=== PATIENT | female | born 1965 | race Asian ===

== ENCOUNTER 2016-12-03 08:44 | Day surgery (SDC) | payer MEDICARE, MEDICAID ==
[2016-12-03] VITALS (10 sets, daily range): BP systolic 99–130; BP diastolic 57–78; PULSE 61–83; RESP 12–21; O2SAT 96–100
[~2016-12-03] VITALS: Ht 157.5 cm; Wt 69.5 kg
--- NOTE | 2016-12-03 08:37 | PCM.HPANE ---
Patient Data Surgeon Admitting Provider: Attending Provider:Jose Valadez MD Primary Care Physician:Leah Carl Other Provider:Higinio Calix Anesthesia Reason for Visit Postmenpausal Bleeding Ht/WT & BMI Height (Feet): 5 Height (Inches): 2 Weight (Kilograms): 68.94 Body Mass Index 27.00 Allergies Coded Allergies: aspirin (Verified Allergy, Intermediate, vomiting, 09/08/12) atenolol (Verified Allergy, Unknown, 09/17/11) frovatriptan succinate (Verified Allergy, Unknown, 09/08/12) Past Anesthesia History Anesthesia History: Denies:: Abnormal Airway, Anesthesia Reactions, Difficult Intubation, Malignant Hyperthermia Diabetes History Hx Diabetes?: No (pt states pre-diabetic) MRSA MRSA: No Medications Hypertension Medication: No Home Meds Incl Beta Kaye: No Reported Medications Naproxen 500 Mg [id number] Mg PO BID PRN For Pain Ref 0 11/28/16 Docusate Sodium (Colace)100 Mg [id number] Mg PO BID PRN For Constipation Ref 0 11/28/16 Naratriptan 2.5 Mg Tablet2.5 Mg PO Q4H PRN migraine MR x1/24hrs 11/28/16 Lorazepam 0.5 Mg Tablet0.5 Mg PO TID PRN For Anxiety Ref 0 11/28/16 Hydrocodone-Acetaminophen 5-325 mg 1 Each Tablet1 Tablet PO Q4H PRN For Pain Ref 0 11/28/16 Fluticasone Propionate (Fluticasone Propionate Nasal)16 Gm [place].susp2 [place] NS BID #16 GM Ref 0 11/28/16 Discontinued Reported Medications Hydrocod/APAP-Expunged, Do Not Renew! (VICODIN 5/325-Expunged Drug, Do Not Renew )1 Each Tablet1 Tab PO PRN 09/05/12 Lorazepam-Expunged Drug, Do Not Renew! 0.5 Mg Tablet0.5 Mg PO BID 09/05/12 Simvastatin-Expunged Drug, Choose New Med! 10 Mg [id number] Mg PO DAILY #30 TAB 09/05/12 History History of ENT Problems?: Yes HEENT History: Positive for:: TMJ (grinds, no longer wears nightguard) Denies:: Abnormal Airway Cataracts Difficult Intubation Dysphagia Glaucoma Hearing Problem Sinus Problem Hx of Heart Problems?: Yes Cardiovascular History: Positive for:: Abdominal Aortic Aneurism (4.[address] 04/2016, followed by Leah Carl, follow CT) Hypertension Denies:: Atrial Fibrillation Chest Pain Congestive Heart Failure Coronary Artery Disease Heart Murmur Irregular Heartbeat Pacemaker Hx of Respiratory Problem?: Yes Respiratory History: Positive for:: Pneumonia (as child with surgery) Denies:: Asthma COPD Emphysema Hemoptysis Oxygen Administration Pulmonary Embolism Tuberculosis Use of C-PAP Machine Use of Inhalers / NEBS Hx Neurologic Problems?: Yes Neurological History: Positive for:: Dizziness Headaches (chronic) Denies:: CVA Multiple Sclerosis Parkinson's Disease Seizures Hx of GI Problems?: Yes Gastrointestinal History: Positive for:: Gastroesphageal Reflux Heartburn Hiatal Hernia (umbilical) Denies:: Cirrhosis Gall Bladder Disease Hepatitis Hx of Problems?: Yes Genitourinary History: Positive for:: Kidney Stones (passed spontaneously) Denies:: Urinary Tract Infection HX of Peritoneal Dialysis: No Female Hx: Denies:: Currently Problems with Breasts? Skin History: Denies:: History Skin Disorders? Pressure Ulcers Hx Musculoskeletal Problems?: Yes Musculoskeletal History: Positive for:: Back Injury (chronic back pain) Osteoarthritis Denies:: Fibromyalgia Joint Replacement Musculoskeletal Trauma Systemic Lupus Hx of Psycho/Social Problems?: Yes Psycho Social History: Positive for:: Anxiety Hx Depression Denies:: Bipolar Disorder Hx Surgeries?: Yes (ablation, rectal surgery, D+C, hysteroscopy) Hx Any Other Health Problems?: Yes Other History: Positive for:: Hospitalization Denies:: Cancer Endocrine Disease Thyroid Disease History Blood Transfusions: Positive for:: Accept Blood Products? Blood Transfusions (in [place] when child) Denies:: Blood Transfuse Reaction Hx Diabetes: No (pt states pre-diabetic) Hx Alcohol Use: YesAlcoholic Drinks Per Day: yearly on holidaysHx Substance Use: No Smoking Status: Never Smoker Have You Smoked inLast 12 mo: No Stop/Bang S-Snoring: Do You Snore Loudly: No T-Tired: feel tired, fatigued: No O-Obsered: Observed not breath: No P-Blood Pressure: treated: No B- Body Mass Index > 35 kg/m2: No A- Age over 50: Yes N- Neck Large Circumference: No G- Gender Male: No JESSIE Total Score: 1 JESSIE Risk Assessment: Low Risk, <3 Yes Risk Assessment Category Category 1A: Patient has history of documented sleep apnea, and HAS NOT received any narcotic, sedative or anesthesia administration during this stay. Category 1B: Patient has history of documented sleep apnea, and HAS received any narcotic , sedative or anesthesia administration during this stay Category 2: Patient has SUSPECTED Obstructive Sleep Apnea, and HAS received any narcotic , sedative or anesthesia administration during this stay. Category 3: Patient has SUSPECTED Obstructive Sleep Apnea and HAS NOT received narcotic, sedative or anesthesia administration during this stay. Category 4: Outpatient in Procedural Areas with known sleep apnea or who screen positive for High Risk via the STOP/BANG questionnaire. Exam Exam General Appearance: Alert, Oriented X3, Cooperative, No Acute Distress HEENT/AIRWAY: MP 2 Lungs: Clear to Auscultation, Normal Air Movement Heart: Exam Unremarkable, Regular Rate/Rhythm, No Murmurs/Rubs/Gallops Plan Impression Patient chart reviewed, patient interviewed and anesthestic plan with risks, benefits, and alternatives discussed, and informed consent obtained. ASA Physical Status: ASA1 Normal Healthy Anesthetic Plan: GA Bene/Risks/Altern/Consents: Yes HP Complete Prior to Induction: Yes Bryan Weaver MD Dec 03, 2016 08:37
[~2016-12-03 08:44] MED LIST: DOCU-41 PO; FLUT16SP NS; HYDR-4003 PO; LORA0.5T PO; NARA2.5T2 PO; NPR500T PO
[2016-12-03] MEDS ORDERED: Propofol 10,000 mCg/mL 20 mL Inj ONE (08:45)
[2016-12-03] MEDS ORDERED: fentaNYL-PF 50 mCg/mL 2 mL Inj ONE (08:45)
[2016-12-03] MEDS ORDERED: Ondansetron 2 mg/mL 2 mL Inj ONE (08:45)
[2016-12-03] MEDS ORDERED: Dexamethasone 4 mg/mL Inj ONE (08:45)
[2016-12-03] MEDS: Lactated Ringer's 1,000 ML IV SCH ×2 (09:24→11:13)
[2016-12-03 11:01] LABS: Mean Corpuscular Hemoglobin 30.1 pg (27.0-35.0)
[2016-12-03] MEDS ORDERED: Lactated Ringer's 500 ML IV PRN (11:36)
[2016-12-03] MEDS ORDERED: Lactated Ringer's 1,000 ML IV SCH (11:36)
[2016-12-03] MEDS ORDERED: Phenylephrine 10,000 mCg/mL Inj IVPUSH PRN (11:40)
[2016-12-03] MEDS ORDERED: fentaNYL-PF 50 mCg/mL 2 mL Inj IVPUSH PRN (11:40)
[2016-12-03] MEDS ORDERED: EPHEDrine Sulfate 50 mg/mL Inj IVPUSH PRN (11:40)
[2016-12-03] MEDS ORDERED: hydrALAZINE 20 mg/mL Inj IVPUSH PRN (11:40)
[2016-12-03] MEDS ORDERED: Atropine 0.4 mg/mL Inj IVPUSH PRN (11:40)
[2016-12-03] MEDS ORDERED: MetoCLOpramide 5 mg/mL 2 mL Inj IVPUSH PRN (11:40)
[2016-12-03] MEDS ORDERED: Ondansetron 2 mg/mL 2 mL Inj IVPUSH PRN ×2 (11:40→12:40)
[2016-12-03] MEDS ORDERED: Dexamethasone 4 mg/mL Inj IVPUSH PRN (11:40)
[2016-12-03] MEDS ORDERED: HYDROmorphone 1 mg/mL Inj IVPUSH PRN (11:40)
--- NOTE | 2016-12-03 12:14 | PCM.ANEP1 ---
Post Anesthesia Phase 1 PACU Phase 1 Assessment Vital Signs Vital Signs Date Time Temp Pulse Resp B/P Pulse Ox O2 Delivery O2 Flow Rate FiO2 12/03/16 12:05 78 16 120/62 100 Simple Mask 9 12/03/16 12:03 36.7 83 13 99/78 100 Simple Mask 9 12/03/16 09:17 36.8 66 18 130/64 96 Room Air Anesthetic Administered: GA Level of Alertness: Sleepy, easy to arouse GHOTRA's with Equal Strength: Yes Pain: No Nausea or Vomiting: No Oxygen Delivery: Simple Mask Lungs: Clear to Auscultation, Normal Air Movement Bryan Weaver MD Dec 03, 2016 12:14
[2016-12-03] MEDS ORDERED: HYDROcodone-APAP 5-325 mg Tablet PO PRN (12:40)
--- NOTE | 2016-12-03 12:44 | PCM.DIGYN ---
Surgical Discharge Instruction Dates of Hospitalization Date of Hospital Admission 12/03/2016 Providers Admitting Physician: Primary Care Physician: Leah Carl Attending Physician: Jose Valadez MD Diagnosis at Time of Discharge Problems: (1) Postmenopausal bleeding Status: Acute ICD Code: N95.0 Diet Discharge Diet: No restrictions Activity Discharge Activity-General: Be up and about, No driving while taking narcotic, Other (Pelvic rest (no tampons or intercourse) for 2 weeks) Dressing and Incisional Care Hygiene: May shower, NO bathtub, hot tub or whirlpool Additional Instructions Discharge Instructions You had a hysteroscopy with D&C. You should anticipate light bleeding and cramping at home. Follow Up Plan Follow-up Provider (F9): Jose Valadez MD Follow-up appointment: Weeks (2) Call your provider for: Fever (of 100.4 or higher), Chills, Shortness of breath , Vomitting, Heavy vaginal bleeding, Increasing pain Jose Valadez MD Dec 03, 2016 12:43
--- NOTE | 2016-12-03 13:41 | PCM.SURGOP ---
Surgical Operative Report Date of Service: Dec 03, 2016 Pre Operative Diagnosis 1. Postmenopausal bleeding Post Operative Diagnosis Same Procedure: 1. Diagnostic hysteroscopy 2. Dilation and curettage Surgeon and Naval Engineer: Surgeon: Jose Valadez MD Assistants: None Indication for Procedure Page is a 51 y/o G0 who presents for hysteroscopy with D&C for postmenopausal bleeding. I saw her for a pap 06/2015 and it was normal. Her ultrasound on 07/29/2016 shows fibroids and an irregular endometrium 6.3mm in thickness. She had an ovarian cyst that resolved over 1 month. She describes her pain as cramping and constant, spreading to her back and worse with bleeding. She continues to report bleeding. Her surgery was postponed in late October d/t a multitude of neurological or cardiovascular complaints now fully evaluated and evaluation benign. Risks benefits and alternatives of the procedure were reviewed in October with patient and again on 12/02/2016 in the office and verbal and written consent obtain. Please see her H&Ps for details. Findings: Small, anterverted uterus, mobile. No masses with bimanual exam. Cervical stenosis noted. Uterus sounds to 8cm. With hysteroscopy, the right cornua is irregular, and was likely dilated with cervical dilation - but no irregular lesions noted intrauterine and no perforation. No endocervical lesions noted either. Procedure Details The patient was taken to the operating room where she was placed under general anesthesia without difficulty. She was then positioned in dorsal lithotomy with Yellofin stirrups. An exam under anesthesia was performed that revealed a small , mobile and anteverted uterus. She was then prepped and draped in the normal sterile fashion. A straight cath was performed to empty her bladder. A time out was performed prior to the start of the procedure. A speculum was then placed in the patient's vaginal and a tenaculum on the anterior lip of the cervix. Uterine attempted to be sounded, but cervical stenosis did not permit sound. The cervix was then dilated to accommodate the hysteroscope. The uterus was then sounded to 8 cm (with long cervical length). The hysteroscopy was performed using normal saline medium. The uterine cavity was inspected and it appeared that with sounding, the right cornua was dilated, but no perforation seen and no other defects. No intrauterine abnormalities noted. Given high deficit at this time, the hysteroscopy was ended. The hysteroscope was removed from the patient's uterus and a sharp curettage was performed both endocervical and endometrial. All instruments were removed from the patient's vagina. The tenaculum sites were inspected and noted to be hemostatic. The patient tolerated the procedure well. Sponge, lap, and instrument counts were correct x2 at the close of the procedure. IVF: 1200mL UOP: 10mL Hysteroscopic fluid deficit: 1050mL EBL: 15mL Antibiotics: none indicated VTE Prophylaxis: SCDs Complications There were no periprocedural complications identified. Surgical Specimen Removed: Yes Specimen sent to Pathology: Yes Surgical Specimen description: Endocervical curetting, endometrial curettings Anesthetic Plan: GA Grafts, Implants: None Output, Estimated Blood Loss: 15 (mL) Blood Administration during oconnor: No Catheters: Straight Post Operative Plan Discharge home later today when recovered and stable. Jose Valadez MD Dec 03, 2016 13:41
--- NOTE | 2016-12-03 14:00 | PCM.ANEP2 ---
Post Anesthesia Evaluation ASA/CMS Post Anesthesia VS in Patient's Normal Range?: Yes Resp Stable; Airway Patent?: Yes CV Function & Hydration Stable: Yes Mental Status Recovered?: Yes Pain control Satisfactory?: Yes N/V Control Satisfactory?: Yes Bryan Weaver MD Dec 03, 2016 14:00
--- NOTE | 2016-12-04 13:45 | PATH ---
SURGICAL PATHOLOGY Attending Physician:Jose Valadez MD CASE STATUS: Signed Out PATIENT NAME: KARIE OCONNOR PID: [id number] : 1965 DATE COLLECTED:12/03/2016 19:40 SPECIMEN: 1: Endocervix, Curettage 2: Endometrium, Curettage CLINICAL HISTORY: POSTMENOPAUSAL BLEEDING 1). ENDOCERVICAL CURETTING 2). ENDOMETRIAL CURETTING FINAL DIAGNOSIS: 1. Endocervical Curettings: Fragment of endocervical tissue, chronically inflamed, negative for atypia. 2. Endometrial Curettings: Secretory endometrium with disordered maturation and changes of glandular and stromal breakdown. Negative for atypia and malignancy. ICD10 N93.8 GROSS DESCRIPTION: The specimen is received in two formalin filled containers labeled with the patient's name. 1). The specimen is sublabeled "endocervical curetting" and consists of a scant aggregate of mucoid material and blood which is filtered and entirely submitted in cassette 1A. 2). The specimen is sublabeled "endometrial curetting" and consists of multiple portions of tissue and blood which aggregate to 2.0 x 1.5 x 0.5 CM. The specimen is filtered and entirely submitted in cassette 2A. 12/03/2016 [facility] ICD-9 CODES: CPT CODES: 1: 29692 2: 16460 Electronically Signed Out Avinash Spear MD [facility] Pathology [facility] [address] [place], [place] [address] Technical component performed at [facility], [address] [place] [address] Ave[address], [place], [address]
== END 2016-12-03 23:59 | disposition home or self-care (01) ==
LOC: SAS 08:44
PROVIDERS: ATTEND Obstetrics & Gynecology
DX: N95.0 Postmenopausal bleeding (principal); I10 Essential (primary) hypertension; K21.9 Gastro-esophageal reflux disease without esophagitis; F41.9 Anxiety disorder, unspecified; F32.9 Major depressive disorder, single episode, unspecified; J30.9 Allergic rhinitis, unspecified; E78.2 Mixed hyperlipidemia; R73.03 Prediabetes; K44.9 Diaphragmatic hernia without obstruction or gangrene
CPT/HCPCS: 36415; 58558; 85027; 88305; J1100; J2175; J2250; J2405; J3010; J7120

== ENCOUNTER 2017-02-18 09:10 | Day surgery (SDC) | payer MEDICARE, MEDICAID ==
[~2017-02-18] VITALS: Ht 157.5 cm; Wt 64.0 kg
[~2017-02-18 09:10] MED LIST changes: +0.9% Sodium Chloride 1,000 ML IV SCH; +Sodium Chloride LOK Flush 10 mL Syringe IV PRN; +fentaNYL-PF 50 mCg/mL 2 mL Inj IVPUSH PRN
[2017-02-18 10:23] VITALS: BP 121/74; PULSE 58; RESP 16; O2SAT 98
[2017-02-18 11:30] VITALS: BP 116/58; PULSE 57; RESP 12; O2SAT 95
[2017-02-18 11:40] VITALS: BP 103/57; PULSE 56; RESP 16; O2SAT 94
--- NOTE | 2017-02-18 11:49 | ENDO ---
[address] [address] ENDOSCOPY PROCEDURE PATIENT: KARIE OCONNOR : 1965 MR#: [id number] ADMIT: 02/18/2017 JOB ID: [id number] PROCEDURE: Esophagogastroduodenoscopy. INDICATION: Dysphagia. ASA CLASSIFICATION: 2. MALLAMPATI SCORE: 2. MEDICATIONS: Versed 4 mg, fentanyl 100 mcg. INSTRUMENT USED: GIF-180-J. PROCEDURE DETAILS: After informed consent was obtained, the patient was brought into the GI suite, where she was placed on oxygen via nasal cannula and monitored with continuous pulse oximeter, telemetry, and blood pressure monitoring. A time-out was performed, and then she was placed in a left lateral decubitus position and a bite block was placed. The standard EGD scope was inserted through the bite block and advanced under direct visualization to second portion of duodenum without difficulty. FINDINGS: 1. Normal-appearing duodenal bulb, first and second portion. 2. Normal-appearing pylorus. 3. In the antrum and body of stomach, there was mild erythema suggestive of mild gastritis. Multiple random biopsies were obtained. 4. Retroflexed views in the gastric body revealed a normal-appearing cardia and fundus. 5. A regular-appearing Z-line was appreciated at 40 cm. The mucosa above the Z-line appeared to be slightly erythematous, suggestive of mild esophagitis. 6. The remainder of the esophagus otherwise appeared unremarkable. Multiple random biopsies were obtained in the mid esophagus. IMPRESSION: 1. Mild esophagitis. 2. Mild gastritis. RECOMMENDATIONS: 1. Trial of omeprazole 20 mg p.o. daily. 2. Proceed to colonoscopy. COMPLICATIONS: None. ESTIMATED BLOOD LOSS: Less than 5 mL.
[2017-02-18 11:50] VITALS: BP 105/56; PULSE 56; RESP 16; O2SAT 95
--- NOTE | 2017-02-18 11:57 | ENDO ---
[address] [address] ENDOSCOPY PROCEDURE PATIENT: KARIE OCONNOR : 1965 MR#: [id number] ADMIT: 02/18/2017 JOB ID: [id number] PROCEDURE PERFORMED: Colonoscopy. INDICATION: Colon cancer screening. Please see above for ASA classification, Mallampati score, and medications. INSTRUMENT USED: PCF-H180-AL. PREPARATION QUALITY: Good. PROCEDURE DETAILS: After completion of the EGD exam, the patient was turned and then a digital rectal exam was performed, which revealed changes consistent with prior surgery in the sacral area. The rectal exam was otherwise unremarkable. The colonoscope was then inserted into the rectum and advanced under direct visualization to the cecum, which was identified by the presence of the ileocecal valve and appendiceal orifice. Once the cecum was reached, the colonoscope was withdrawn back into the rectum as the mucosa and lumen were examined. In the rectum, retroflexion was performed. Following retroflexion, remaining air in the rectum was suctioned and the procedure was completed. FINDINGS: Normal exam from rectum to cecum. IMPRESSION: Normal colonoscopy. RECOMMENDATIONS: Repeat colonoscopy in 10 years, sooner if symptoms should dictate. COMPLICATIONS: None. ESTIMATED BLOOD LOSS: 0.
--- NOTE | 2017-02-20 16:35 | PATH ---
SURGICAL PATHOLOGY Attending Physician:Anirudh Blanchard CASE STATUS: Signed Out PATIENT NAME: KARIE OCONNOR PID: [id number] : 1965 DATE COLLECTED:02/18/2017 20:07 SPECIMEN: 1: Gastric, Biopsy 2: Esophagus, Biopsy CLINICAL HISTORY: 1). RANDOM GASTRIC BIOPSY 2). MID ESOPHAGEAL BIOPSY FINAL DIAGNOSIS: 1.STOMACH, RANDOM BIOPSIES: ANTRAL MUCOSA WITH INTESTINAL METAPLASIA. BODY-TYPE MUCOSA WITH NO DIAGNOSTIC ABNORMALITY. Negative for Helicobacter organisms by immunohistchemistry. Negative for dysplasia and malignancy. 2.MID ESOPHAGUS, BIOPSY: SQUAMOUS EPITHELIUM WITH NO DIAGNOSTIC ABNORMALITY. Intraepithelial eosinophils are not increased. Negative for dysplasia and malignancy. ICD10 code R10.9 GROSS DESCRIPTION: The specimen is received in two formalin filled containers labeled with the patient's name. 1). The specimen is sublabeled "random gastric" and consists of 3 portions of tissue which aggregate to 0.3 x 0.3 x 0.2 CM. The specimen is entirely submitted in cassette 1A. 2). The specimen is sublabeled "mid esophageal" and consists of 3 portions of tissue which aggregate to 0.3 x 0.3 x 0.2 CM. The specimen is entirely submitted in cassette 2A. 02/18/2017 [facility] MICRO DESCRIPTION: 1.An immunohistochemical stain for Helicobacter was performed to evaluate for Helicobacter organisms and is negative. A control stain showed appropriate reactivity. Intestinal metaplasia is present in 1 of 3 fragments. This test was developed and its performance characteristics determined by [facility]. It has not been cleared or approved by the U. S. Food and Drug Administration. The FDA has determined that such clearance or approval is not necessary. This test is used for clinical purposes. It should not be regarded as investigational or for research. ICD-9 CODES: CPT CODES: 1: 12521, 47631 2: 52379 Electronically Signed Out Mitra Stanton MD [facility] Pathology [facility] [address], [place] [address] Technical component performed at [facility], [address], [place], [address]
== END 2017-02-18 23:59 | disposition home or self-care (01) ==
LOC: END 09:10
PROVIDERS: ATTEND Internal Medicine Gastroenterology
DX: Z12.11 Encounter for screening for malignant neoplasm of colon (principal); Z80.0 Family history of malignant neoplasm of digestive organs; R13.10 Dysphagia, unspecified; F41.9 Anxiety disorder, unspecified; R73.03 Prediabetes; K59.00 Constipation, unspecified; E78.2 Mixed hyperlipidemia; J30.9 Allergic rhinitis, unspecified; Z87.442 Personal history of urinary calculi
CPT/HCPCS: 43239; 88305; 88342; 99152; 99153; G0105; J2250; J3010; J7030